=== PATIENT | male | born 1955 | race Two or more races ===

== ENCOUNTER 2020-08-30 06:18 | Emergency (ER) | payer SELFPAY ==
[~2020-08-30] VITALS: Ht 157.5 cm; Wt 91.0 kg
[2020-08-30] MEDS ORDERED: SODIUM CHLORIDE 0.9% 1,000 ML IV ONE ×2 (06:45→07:00)
[2020-08-30 07:07] LABS: CLARITY URINE CLEAR (CLEAR); COLOR URINE DARK YELLOW (YELLOW); KETONES URINE TRACE (NEGATIVE); LEUKOCYTE ESTERASE URINE NEGATIVE (NEGATIVE); NITRITE URINE NEGATIVE (NEGATIVE); OCCULT BLOOD URINE NEGATIVE (NEGATIVE); PH URINE 6.5 (4.5-8.0); PROTEIN URINE 1+ (NEGATIVE); SPECIFIC GRAVITY URINE 1.025 (1.005-1.030)
[2020-08-30 07:21] LABS: *BARBITURATES SCREEN URINE NEGATIVE (NEGATIVE)
[2020-08-30 07:22] LABS: *AMPHETAMINES SCREEN URINE NEGATIVE (NEGATIVE); *BENZODIAZEPINES SCREEN URINE NEGATIVE (NEGATIVE); *COCAINE SCREEN URINE NEGATIVE (NEGATIVE); CANNABINOID URINE SCREEN NEGATIVE (NEGATIVE); METHADONE URINE SCREEN NEGATIVE (NEGATIVE); OPIATES URINE SCREEN NEGATIVE (NEGATIVE); PHENCYCLIDINE URINE SCREEN NEGATIVE (NEGATIVE)
[2020-08-30] MEDS ORDERED: EPINEPHRINE 0.1MG/ML (1:10,000) 10ML SYR ONE (07:30)
[2020-08-30] MEDS ORDERED: ATROPINE SULFATE 1MG/10ML SYR ONE (07:30)
[2020-08-30] MEDS ORDERED: FENTANYL CITRATE/PF 500 MCG in SODIUM CHLORIDE 0.9% 40 ML IV STA (07:49)
[2020-08-30] MEDS ORDERED: MIDAZOLAM HCL 100 MG in DEXT 5% WATER 80 ML IV ONE (08:00)
[2020-08-30] MEDS ORDERED: MIDAZOLAM HCL 100 MG in DEXT 5% WATER 100 ML IV PRN (08:00)
[2020-08-30] MEDS ORDERED: ETOMIDATE 2MG/ML 10ML VIAL IV ONE (08:00)
[2020-08-30] MEDS ORDERED: SUCCINYLCHOLINE CHLORIDE 200MG/10ML IV ONE (08:00)
[2020-08-30 09:09] LABS: HEMATOCRIT. 25.6 % (42.0-52.0); HEMOGLOBIN. 7.9 g/dL (14.0-18.0); MEAN CORPUSCULAR HEMOGLOBIN 32.2 pg (28.0-32.0); MEAN CORPUSCULAR VOLUME 104.8 fL (80.0-94.0); MEAN PLATELET VOLUME 11.1 fl (7.4-10.4); PLATELET 56 x1000/uL (130-400); RED BLOOD CELL COUNT 2.45 mill/uL (4.7-6.1); RED CELL DISTRIBUTION WIDTH 17.2 % (11.6-14.6)
[2020-08-30] MEDS ORDERED: NOREPINEPHRINE 8MG/250ML PMX 250 ML IV ONE (09:15)
[2020-08-30 09:23] LABS: CHLORIDE 101 mEq/L (98-107)
[2020-08-30] MEDS ORDERED: NOREPINEPHRINE 8 MG in DEXTROSE 5% WATER 250 ML IV PRN (09:30)
[2020-08-30 09:41] LABS: NUCLEATED RED BLOOD CELLS 3 /100 WBC; PLATELET ESTIMATE DECREASED
[2020-08-30 09:45] LABS: ETHANOL BLOOD 359 mg/dL
[2020-08-30 09:56] LABS: BG BASE EXCESS -28.9 mmol/L (-2.0-2.0); BG CARBOXYHEMOGLOBIN 0.1 % (0.5-1.5); BG DEOXYHEMOGLOBIN 0.8 % (0.0-5.0); BG FRACTION INSPIRED OXYGEN 100; BG HCO3 ACT 4.8 mmol/L (22.0-26.0); BG METHEMOGLOBIN 0.7 % (0.0-1.5); BG OXYGEN SATURATION 99.2 % (92.0-98.5); BG OXYHEMOGLOBIN 98.4 % (94.0-97.0); BG PCO2 35.5 mmHg (35.0-45.0); BG PH 6.747 (7.350-7.450); BG PO2 438.9 mmHg (75.0-100.0); BG SAMPLE SITE RIGHT BRACHIAL; BG VENT MODE VENT - AC
[2020-08-30] MEDS ORDERED: PIPERACILLIN/TAZ 3.375G PREMIX 50 ML IV NR (10:30)
[2020-08-30] MEDS ORDERED: PANTOPRAZOLE 80 MG in SODIUM CHLORIDE 0.9% 100 ML IV SCH (10:30)
[2020-08-30] MEDS ORDERED: VANCOMYCIN 1 G PREMIX 200 ML IV NR (10:30)
[2020-08-30] MEDS ORDERED: OCTREOTIDE 1,000 MCG in SODIUM CHLORIDE 0.9% 100 ML IV SCH (10:30)
[2020-08-30] MEDS ORDERED: PANTOPRAZOLE SODIUM 40 MG/VIAL IV NR (10:30)
[2020-08-30] MEDS ORDERED: PIPERACILLIN/TAZOBACTAM 3.375GM/50ML PREMIX IV ONE (10:30)
[2020-08-30 10:55] LABS: INR 2.7; PROTHROMBIN TIME 26.6 sec (9.6-11.0)
[2020-08-30 11:46] VITALS: BP 90/31
[2020-08-30 12:06] LABS: D-DIMER 18.5 mg/L FEU (<0.50)
[2020-08-30] MEDS ORDERED: SODIUM BICARBONATE 150 MEQ in SODIUM CHLORIDE 0.45% 1,000 ML IV STA (12:45)
[2020-08-30 12:47] LABS: BG BASE EXCESS -29.4 mmol/L (-2.0-2.0); BG CARBOXYHEMOGLOBIN 0.4 % (0.5-1.5); BG DEOXYHEMOGLOBIN 5.4 % (0.0-5.0); BG FRACTION INSPIRED OXYGEN 50; BG METHEMOGLOBIN 0.9 % (0.0-1.5); BG OXYGEN SATURATION 94.5 % (92.0-98.5); BG OXYHEMOGLOBIN 93.3 % (94.0-97.0); BG PCO2 19.9 mmHg (35.0-45.0); BG PH 6.797 (7.350-7.450); BG PO2 136.3 mmHg (75.0-100.0); BG SAMPLE SITE RIGHT BRACHIAL; BG TOTAL HEMOGLOBIN 7.3 g/dL (12.0-18.0); BG VENT MODE VENT - AC
[2020-08-30] MEDS ORDERED: LACTULOSE 20G/30ML UDC PO SCH (14:00)
[2020-08-30] MEDS ORDERED: PHYTONADIONE 10MG/ML AMP SUBCUT SCH (14:30)
[2020-08-30] MEDS ORDERED: VASOPRESSIN 20 UNIT in SODIUM CHLORIDE 0.9% 99 ML IV STA (14:52)
[2020-08-30] MEDS ORDERED: SUCRALFATE 1G TABLET NG SCH (17:00)
[2020-08-30] MEDS ORDERED: PANTOPRAZOLE SODIUM 40 MG/VIAL IV SCH (21:00)
[2020-08-30] MEDS ORDERED: RIFAXIMIN 550 MG TABLET NG SCH (21:00)
== END 2020-08-30 18:20 ==
LOC: ER 06:18 → EDBEDREQTM 10:51 → EDBEDREQ 10:51 → ER 18:20 → CANBEDREQ 18:24
DX: J96.90 Respiratory failure, unspecified, unspecified whether with hypoxia or hypercapnia (principal); K72.90 Hepatic failure, unspecified without coma; K92.2 Gastrointestinal hemorrhage, unspecified; E87.2 Acidosis; E11.9 Type 2 diabetes mellitus without complications; I10 Essential (primary) hypertension; Z20.822 Contact with and (suspected) exposure to COVID-19
CPT/HCPCS: 31500; 36415; 36556; 36600; 71045; 80053; 80305; 80320; 81003; 82010; 82140; 82375; 82805; 82962; 83690; 83930; 85025; 85379; 85384; 85610; 86850; 86900; 86901; 86920; 86927; 86945; 87426; 93005; 96361; 96365; 96367; 96375; 99291; C9113; J0461; J2354; J2543; J3010; J3370; J3490; J7030; J7050; J7060; Z7610; 94002; J2250; P9016; P9017; P9034; G0480